=== PATIENT | male | born 1985 | race Caucasian/White ===

== ENCOUNTER 2025-03-12 07:06 | Emergency (ER) | payer MEDICAID, SELFPAY ==
[2025-03-12 07:12] VITALS: BP 113/69; PULSE 69; RESP 15; TEMP 36.5; O2SAT 98; BMI 31.1
--- NOTE | 2025-03-12 07:18 | ED_ITS ---
HPI - Nausea/Vomiting/Diarrhea 2 General: Chief complaint: GI Bleed Stated complaint: bloody emesis Time Seen by Provider: 03/12/25 07:09 Source: patient and EMS Mode of arrival: EMS Limitations: no limitations History of Present Illness: 39-year-old male who states he had a lef t lower molar pulled 5 days ago he states he woke up this morning with bleeding from his mouth states he did swallow some blood and vomited once. Does have a history alcoholism along with esophageal varices in the past as well. He denies any lightheadedness denies any pain Associated nausea: Yes Associated symtoms: Reports nausea; Denies chest pain or headache(s) Related Data Allergies Allergy/AdvReac Type Severity Reaction Status Date / Time No Known Allergies Allergy Verified 03/12/25 07:31 Review of Systems 2 Const: Denies: fever(s), chills, body aches or change in appetite Eyes: Denies: blurry vision or eye discomfort ENMT: Denies: throat pain or dental pain Card: Denies: chest pain Resp: Denies: dyspnea GI: Reports: nausea and vomiting; Denies: abdominal pain or diarrhea Musc: Denies: neck pain or back pain Skin/Breast: Denies: rash Neuro: Denies: headache(s) Physical Exam 2 Const: COMMON NORMALS: no acute distress, patient oriented x3 and healthy appearing HENMT: COMMON NORMALS: normocephalic and atraumatic HEAD & SCALP: n ormocephalic and atraumatic Eye: COMMON NORMALS: conjunctivae normal CONJUNCTIVA: Yes conjunctivae normal Neck/C-Spine: COMMON NORMALS: full ROM and supple Chest: COMMONS NORMALS: normal inspection of the chest Resp: COMMON NORMALS: normal respiratory effort, No retractions, No use of accessory muscles and clear to auscultation bilaterally AUSCULTATION: clear to auscultation bilaterally Cardio: COMMON NORMALS: regular rate, regular rhythm and No murmurs present (Cardio) RATE: regular rate RHYTHM: regular rhythm GI: COMMON NORMALS: Normal to inspection, nondistended, normoactive bowel sounds present, Soft to palpation, non-tender and no masses PALPATION: Yes Soft to palpation Extremity: COMMON NORMALS: normal to inspection and full ROM Neuro: COMMON NORMALS: patient oriented x3, moves all extremities and no focal motor deficits Psych: COMMON NORMALS: mental status grossly normal, Normal thought process present and cooperative THOUGHT PROCESS: Normal thought process present Skin: COMMON NORMALS: no rashes or lesions noted and no wounds GENERAL SKIN EXAM: no rashes or lesions noted Course 2 Vital Signs: Vital signs: Vital Signs Temperature 97.7 F 03/12/25 07:12 Pulse Rate 56 L 03/12/25 08:52 Respiratory Rate 15 03/12/25 08:01 Blood Pressure 102/58 03/12/25 08:52 Pulse Oximetry 97 03/12/25 08:52 Oxygen Delivery Me thod Room Air 03/12/25 07:12 MDM - Nausea/Vomiting/Diarrhea Medical Decision Making Patient presents here with bleeding from extracted tooth is hemoglobin is normal he has had no hematemesis here did give him TXA and put pressure on the wound and has stopped bleeding he stable for discharge. Medical Records I reviewed the patient's medical records. Lab Data I reviewed the patient's lab results. 03/12/25 07:18 03/12/25 07:18 Laboratory Results WBC 3.36 10^3/uL (3.29-11.43) 03/12/25 07:18 RBC 3.88 10^6/uL (3.85-5.65) 03/12/25 07:18 Hgb 12.00 g/dL (11.27-16.99) 03/12/25 07:18 Hct 37.3 % (37-53) 03/12/25 07:18 MCV 96.1 fl (82-101) 03/12/25 07:18 MCH 30.9 pg (27-33) 03/12/25 07:18 MCHC 32.2 g/dL (30-55) 03/12/25 07:18 RDW 18.8 % (12.1-15.1) H 03/12/25 07:18 Plt Count 113 10^3/cmm (157-399) L 03/12/25 07:18 MPV 10.7 fL (7.4-10.4) H 03/12/25 07:18 Neut % (Auto) 48.7 % 03/12/25 07:18 Lymph % (Auto) 28.3 % 03/12/25 07:18 [place] % (Auto) 16.7 % 03/12/25 07:18 Eos % (Auto) 5.7 % 03/12/25 07:18 Baso % (Auto) 0.6 % 03/12/25 07:18 Neut # (Auto) 1.64 10^3/uL (1.8-7.7) L 03/12/25 07:18 Lymph # (Auto) 1.0 10^3/uL (0.8-4.8) 03/12/25 07:18 [place] # (Auto) 0.6 10^3/uL (0.2-0.9) 03/12/25 07:18 Eos # (Auto) 0.2 10^3/uL (0.0-0.8) 03/12/25 07:18 Baso # (Auto) 0.0 10^3/uL (0.0-0.1) 03/12/25 07:18 Nucleated RBC % (auto) 0 % 03/12/25 07:18 Nucleated RBCs # 0.0 /100WBC 03/12/25 07:18 PT 13.70 SECONDS (12.1-14.9) 03/12/25 07:18 INR 0.98 (0.8-1.2) 03/12/25 07:18 Sodium 136 mmol/L (136-145) 03/12/25 07:18 Potassium 3.6 mmol/L (3.5-5.1) 03/12/25 07:18 Chloride 106 mmol/L (98-107) 03/12/25 07:18 Carbon Dioxide 20 mmol/L (22-29) L 03/12/25 07:18 Anion Gap 13.6 (5-19) 03/12/25 07:18 BUN 11 mg/dL (6-20) 03/12/25 07:18 Creatinine 0.5 mg/dL (0.7-1.2) L 03/12/25 07:18 GFR Calculation 183.2 mL/min (90-130) H 03/12/25 07:18 Glucose 116 mg/dL (65-115) H 03/12/25 07:18 Calculated Osmolality 282 mOsm/kg (285-295) L 03/12/25 07:18 Calcium 8.8 mg/dL (8.5-10.5) 03/12/25 07:18 Total Bilirubin 0.9 mg/dL (0.15-1.2) 03/12/25 07:18 AST 42 U/L (0-40) H 03/12/25 07:18 ALT 24 U/L (0-41) 03/12/25 07:18 Alkaline Phosphatase 74 U/L (40-130) 03/12/25 07:18 Total Protein 6.9 g/dL (6.6-8.7) 03/12/25 07:18 Albumin 3.3 g/dL (3.5-5.2) L 03/12/25 07:18 Globulin 3.6 g/dL (1.3-4.6) 03/12/25 07:18 Lipase 53 U/L (13-60) 03/12/25 07:18 Blood Type A Positive 03/12/25 07:18 Rho(D) Type Rh positive 03/12/25 07:18 Antibody Screen Negative 03/12/25 07:18 No radiology studies performed this visit Discharge Plan Discharge Patient Disposition: Home Clinical Impression: Surgical wound hemorrhage after dental procedure Condition: Stable Discharge Orders: Discharge ED (Routine); Ordered 03/12/25 Ordered By: Jo Truong Discharge Diet: Advance as tolerated Discharge Activity: Resume usual activity Patient Instructions: Mouth Care (ED) Print Language: Malagasy Coding Level of Care Code ED Front End Loader Driver for Staci Nettles
[2025-03-12 07:25] LABS: Hematocrit 37.3 % (37-53); Hemoglobin 12.00 g/dL (11.27-16.99); Mean Corpuscular HGB Conc 32.2 g/dL (30-55); Mean Corpuscular Hemoglobin 30.9 pg (27-33); Mean Corpuscular Volume 96.1 fl (82-101); Nucleated Red Blood Cells % 0 %; Platelet Count 113 10^3/cmm (157-399); Red Blood Count 3.88 10^6/uL (3.85-5.65); White Blood Count 3.36 10^3/uL (3.29-11.43)
[2025-03-12] MEDS: ondansetron 2 mg/ML SDV 2 mL 4 MG IVP (07:34)
[2025-03-12] MEDS: tranexamic acid 1,000 MG/100 ML PREMIX 600 MG IV (07:35)
[2025-03-12 07:37] LABS: INR 0.98 (0.8-1.2); Prothrombin Time 13.70 SECONDS (12.1-14.9)
[2025-03-12 07:43] VITALS: BP 104/61; PULSE 56; RESP 14; O2SAT 96
[2025-03-12 07:46] LABS: Alanine Aminotransferase 24 U/L (0-41); Albumin Level 3.3 g/dL (3.5-5.2); Alkaline Phosphatase 74 U/L (40-130); Anion Gap 13.6 (5-19); Aspartate Amino Transferase 42 U/L (0-40); Blood Urea Nitrogen 11 mg/dL (6-20); Calcium 8.8 mg/dL (8.5-10.5); Carbon Dioxide 20 mmol/L (22-29); Chloride 106 mmol/L (98-107); Globulin 3.6 g/dL (1.3-4.6); Glucose 116 mg/dL (65-115); Lipase 53 U/L (13-60); Osmolality Calculated 282 mOsm/kg (285-295); Potassium 3.6 mmol/L (3.5-5.1); Sodium 136 mmol/L (136-145); Total Protein 6.9 g/dL (6.6-8.7)
[2025-03-12 07:49] LABS: Creatinine Clr Calc Pharmacy 242.7986
[2025-03-12 08:01] VITALS: BP 97/54; PULSE 56; RESP 15; O2SAT 97
[2025-03-12 08:52] VITALS: BP 102/58; PULSE 56; O2SAT 97
== END 2025-03-12 08:54 | disposition home or self-care (01) ==
PROVIDERS: Emergency Provider Emergency Medicine; PCP Internal Medicine Hospice and Palliative Medicine
DX: K91.841 Postprocedural hemorrhage of a digestive system organ or structure following other procedure (principal)
CPT/HCPCS: 36415; 80053; 83690; 85025; 85610; 86850; 86900; 96374; 99284; J2405; J9999

== ENCOUNTER 2025-06-09 15:33 | Emergency (ER) | payer MEDICAID, SELFPAY ==
[2025-06-09 15:37] VITALS: BP 128/76; PULSE 71; RESP 17; TEMP 36.5; O2SAT 99; BMI 32.1
--- OUTSIDE RECORDS SUMMARY | 2025-06-09 15:39 | XMS_ITS | Clinical Summary ---
Author Organization [facility] Address [address] [place] [address] Care Team Providers Care Cup Machine Operator Name Role Phone Belgica Gallegos MD Primary Care Provider [phone] Allergies No known active allergies Medications pantoprazole (PROTONIX) 40 mg Tablet, Delayed Release (E.C.)Indication s:History of esophageal varices with bleeding Take 1 Tablet (40 mg) by mouth 2 times daily. 60 Tablet 2 12/26/2020 1:24 PM CDT 12/26/2020 Active rifAXIMin (XIFAXAN) 550 mg TabletIndication s:Alcoholic hepatitis without ascites (CMS/HCC),Alcoho lic cirrhosis of liver without ascites (CMS/HCC) Take 1 Tablet (550 mg) by mouth 2 times daily. 180 Tablet 1 12/26/2020 Active sucralfate (CARAFATE) 1 gram tabletIndication s:History of esophageal varices with bleeding Take 1 Tablet (1 Gram) by mouth 4 times daily before meals and at bedtime. 120 Tablet 3 12/26/2020 1:24 PM CDT 12/26/2020 Active spironolactone (ALDACTONE) 50 mg tabletIndication s:Alcoholic cirrhosis of liver without ascites (CMS/HCC),Alcoho lic hepatitis without ascites (CMS/HCC),Histor y of esophageal varices with bleeding Take 1 Tablet (50 mg) by mouth daily. 30 Tablet 3 01/29/2021 8:51 AM CDT 01/28/2021 Active furosemide (LASIX) 20 mg tabletIndication s:Alcoholic cirrhosis of liver without ascites (CMS/HCC),Alcoho lic hepatitis without ascites (CMS/HCC),Histor y of esophageal varices with bleeding Take 1 Tablet (20 mg) by mouth daily. 30 Tablet 3 01/29/2021 8:51 AM CDT 01/28/2021 Active Active Problems Problem Noted Date Diagnosed Date Hepatic encephalopathy 01/28/2021 Gynecomastia, male 01/28/2021 Smoking 01/28/2021 Alcoholism 01/28/2021 Family History Medical History Relation Name Comments Diabetes Maternal Grandfather Relation Name Status Comments Maternal Grandfather Other prostat e cancer Social History Tobacco Use Types Packs/Day Years Used Date Smoking Tobacco: Every Day Cigarettes Smokeless Tobacco: Never Comments:pt. states he smoke s 3 ppw 01.28.21 Alcohol Use Standard Drinks/Week Comments Not Currently 0 (1 standard drink = 0.6 oz pur e alcohol) clean for 1 year 01.28.21 Sex and Gender Information Value Date Recorded Sex Assigned at Not on file Legal Sex Male 2:28 PM CDT Gender Identity Not on file Sexual Orientation Not on file Last Filed Vital Signs Vital Sign Reading Time Taken Comments Blood Pressure 100/50 01/28/2021 2:29 PM CDT Pulse 57 01/28/2021 2:29 PM CDT Temperature 37.2 C (99 F) 01/28/2021 2:29 PM CDT Respiratory Rate 20 01/28/2021 2:29 PM CDT Oxygen Saturation 97% 01/28/2021 2:29 PM CDT Inhaled Oxygen Concentration - - Weight 103 kg (227 lb) 01/28/2021 2:29 PM CDT Height 182.9 cm (6') 01/28/2021 2:29 PM CDT Body Mass Index 30.79 01/28/2021 2:29 PM CDT Plan of Treatment Health Maintenance Due Date Last Done Comments Pre-Diabetes and Diabetes Screening 1983 DTAP/TDAP/TD VACCINES (1 - Tdap) 2002 HEPATITIS B VACCINES (1 of 3 - 19+ 3-dose series) 04/04 HPV VACCINES (1 - 3-dose SCDM series) 2010 INFLUENZA VACCINE (#1) 2025 Preventative Visit- Commercial Completed 09/08/2024 Insurance [facility] Care Teams Cup Machine Operator Relationship Specialty Start Date End Date Belgica Gallegos MD [address] [place] [id number] PCP - General Family Practice 12/12/20
[2025-06-09 16:11] LABS: Hematocrit 44.5 % (37-53); Hemoglobin 14.50 g/dL (11.27-16.99); Mean Corpuscular HGB Conc 32.6 g/dL (30-55); Mean Corpuscular Hemoglobin 32.1 pg (27-33); Mean Corpuscular Volume 98.5 fl (82-101); Nucleated Red Blood Cells % 0 %; Platelet Count 161 10^3/cmm (157-399); Red Blood Count 4.52 10^6/uL (3.85-5.65); White Blood Count 5.86 10^3/uL (3.29-11.43)
[2025-06-09] MEDS: ondansetron 2 mg/ML SDV 2 mL 4 MG IVP (16:25)
[2025-06-09] MEDS: pantoprazole 40 mg SDV IVP (16:25)
[2025-06-09 16:27] LABS: Alanine Aminotransferase 36 U/L (0-41); Albumin Level 3.9 g/dL (3.5-5.2); Alkaline Phosphatase 83 U/L (40-130); Aspartate Amino Transferase 42 U/L (0-40); Blood Urea Nitrogen 7 mg/dL (6-20); Calcium 9.4 mg/dL (8.5-10.5); Carbon Dioxide 25 mmol/L (22-29); Chloride 105 mmol/L (98-107); Creatinine Clr Calc Pharmacy 203.1694; Globulin 3.7 g/dL (1.3-4.6); Glucose 112 mg/dL (65-115); Lipase 46 U/L (13-60); Osmolality Calculated 291 mOsm/kg (285-295); Sodium 141 mmol/L (136-145); Total Protein 7.6 g/dL (6.6-8.7)
[2025-06-09 16:28] LABS: Anion Gap 15.3 (5-19); Potassium 4.3 mmol/L (3.5-5.1)
--- NOTE | 2025-06-09 16:47 | ED_ITS ---
HPI - Nausea/Vomiting/Diarrhea 2 General: Chief complaint: Nausea/Vomiting/Diarrhea Stated complaint: NV / Constipation Time Seen by Provider: 06/09/25 15:52 History of Present Illness: 40-year-old male past medical history si gnificant for alcoholic liver cirrhosis stage III last drink 1 month ago, status post upper endoscopy for banding of esophageal varices 1 to 2 months ago at [facility] where he follows up with GI, presenting the emergency department with a 4-day history of difficulty tolerating p.o. fluids and fluids, feels that something is getting stuck in the bottom of his throat, thinks it may be related to his banding although that was done over a month ago and he reports he was swallowing fine prior to that, he reports an occasional vomiting without blood, he denies diarrhea, denies fever. Related Data Allergies Allergy/AdvReac Type Severity Reaction Status Date / Time No Known Allergies Allergy Verified 03/12/25 07:31 Physical Exam 2 Narrative: EXAM NARRATIVE: Gen: A&Ox4, no acute distress, nontoxic appearing HEENT: Normocephalic, atraumatic, no scleral icterus, external ears normal, moist mucous membranes Neck: Supple, full range of motion, no observable masses Lungs: No Respiratory distress, Lungs clear to auscultation bilaterally no rales, rhonchi, wheezing CV: Regular rate and rhythm, no murmur, no pitting edema to lower extremities bilaterally Abdomen: Soft, minimally distended, nontender to palpation MSK: No joint swelling, FROM all 4 extremities Skin: No rashes, petechiae, lesions. Normal color per patient. Neuro: Alert and oriented, no slurred speech, sensation and strength grossly intact all 4 extremities Psych: Appropriate for situation. Course 2 Reevaluation(s): Reevaluation #1: Lab work generally unremarkable, no evidence of clinically significant electrolyte abnormality SHERIN or dehydration, patient did tolerate p.o. intake in the ER witnessed by RN without regurgitation, stable for discharge with outpatient GI recommendation follow-up at [facility].. Time: 17:19 Vital Signs: Vital signs: Vital Signs Temperature 97.7 F 06/09/25 15:37 Pulse Rate 71 06/09/25 15:37 Respiratory Rate 17 06/09/25 15:37 Blood Pressure 128/76 06/09/25 15:37 Pulse Oximetry 99 06/09/25 15:37 Oxygen Delivery Me thod Room Air 06/09/25 15:37 MDM - Nausea/Vomiting/Diarrhea Medical Decision Making 40-year-old male history of alcoholic liver cirrhosis presenting the emergency department with reported dysphagia and intolerance to p.o. food and fluids x 4 to 5 days, on exam he appears well-hydrated, he has stable vital signs, he has no significant tenderness to abdominal palpation, will obtain labs to assess for any significant electrolyte derangements SHERIN or evidence of severe malnutrition/dehydration, at this time patient may eventually require repeat upper endoscopy to assess for esophageal stricture but given that he has no pain and his last procedure was over a month ago I have no concern for iatrogenic esophageal perforation or mediastinitis, we will assess for any acute emergency medical condition that would necessitate transfer to a facility with GI capabilities, if no acute pathology found would likely recommend patient follow- up with his GI doctors in [facility] for further evaluation Lab Data No leukocytosis no anemia no SHERIN normal electrolytes LFTs generally benign with minimal elevation in AST and normal bilirubin 06/09/25 16:01 06/09/25 16:01 Laboratory Results WBC 5.86 10^3/uL (3.29-11.43) 06/09/25 16:01 RBC 4.52 10^6/uL (3.85-5.65) 06/09/25 16:01 Hgb 14.50 g/dL (11.27-16.99) 06/09/25 16:01 Hct 44.5 % (37-53) 06/09/25 16:01 MCV 98.5 fl (82-101) 06/09/25 16:01 MCH 32.1 pg (27-33) 06/09/25 16:01 MCHC 32.6 g/dL (30-55) 06/09/25 16:01 RDW 15.0 % (12.1-15.1) 06/09/25 16:01 Plt Count 161 10^3/cmm (157-399) 06/09/25 16:01 MPV 9.7 fL (7.4-10.4) 06/09/25 16:01 Neut % (Auto) 73.2 % 06/09/25 16:01 Lymph % (Auto) 14.2 % 06/09/25 16:01 [place] % (Auto) 9.2 % 06/09/25 16:01 Eos % (Auto) 2.9 % 06/09/25 16:01 Baso % (Auto) 0.3 % 06/09/25 16:01 Neut # (Auto) 4.29 10^3/uL (1.8-7.7) 06/09/25 16:01 Lymph # (Auto) 0.8 10^3/uL (0.8-4.8) 06/09/25 16:01 [place] # (Auto) 0.5 10^3/uL (0.2-0.9) 06/09/25 16:01 Eos # (Auto) 0.2 10^3/uL (0.0-0.8) 06/09/25 16:01 Baso # (Auto) 0.0 10^3/uL (0.0-0.1) 06/09/25 16:01 Nucleated RBC % (auto) 0 % 06/09/25 16:01 Nucleated RBCs # 0.0 /100WBC 06/09/25 16:01 Sodium 141 mmol/L (136-145) 06/09/25 16:01 Potassium 4.3 mmol/L (3.5-5.1) 06/09/25 16: Chloride 105 mmol/L (98-107) 06/09/25 16:01 Carbon Dioxide 25 mmol/L (22-29) 06/09/25 16:01 Anion Gap 15.3 (5-19) 06/09/25 16:01 BUN 7 mg/dL (6-20) 06/09/25 16: Creatinine 0.6 mg/dL (0.7-1.2) L 06/09/25 16: GFR Calculation 147.8 mL/min (90-130) H 06/09/25 16:01 Glucose 112 mg/dL (65-115) 06/09/25 16: Calculated Osmolality 291 mOsm/kg (285-295) 06/09/25 16: Calcium 9.4 mg/dL (8.5-10.5) 06/09/25 16:01 Total Bilirubin 0.7 mg/dL (0.15-1.2) 06/09/25 16:01 AST 42 U/L (0-40) H 06/09/25 16:01 ALT 36 U/L (0-41) 06/09/25 16:01 Alkaline Phosphatase 83 U/L (40-130) 06/09/25 16:01 Total Protein 7.6 g/dL (6.6-8.7) 06/09/25 16:01 Albumin 3.9 g/dL (3.5-5.2) 06/09/25 16:01 Globulin 3.7 g/dL (1.3-4.6) 06/09/25 16:01 Lipase 46 U/L (13-60) 06/09/25 16:01 No radiology studies performed this visit Discharge Plan Discharge Patient Disposition: Home Clinical Impression: Dysphagia Condition: Stable Discharge Orders: Discharge ED (Routine); Ordered 06/09/25 Ordered By: Zachary Metz Referrals: Shelley Nolan M.D. [Primary Care Provider, Unknown] Patient Instructions: Patient Portal & Darcy Instructions, Dysphagia (ED) Activity Restrictions/Additional Instructions: You were seen in the emergency department for difficulty tolerating food and fluids, your workup in the emergency department shows no evidence of emergent dehydration or electrolyte abnormalities, at this time I recommend you follow-up with your trial justice to consider repeat endoscopy to evaluate your esophagus for other pathology, return to the emergency department if your symptoms worsen prior to following up with GI Print Language: Cambodian Coding Level of Care Code ED Sneller Hand for Satci Nettles
[2025-06-09 18:30] VITALS: BP 109/72; PULSE 67; O2SAT 100
== END 2025-06-09 18:32 | disposition home or self-care (01) ==
PROVIDERS: Emergency Provider Student in an Organized Health Care Education/Training Program; PCP Internal Medicine Hospice and Palliative Medicine
DX: R13.10 Dysphagia, unspecified (principal)
CPT/HCPCS: 36415; 80053; 83690; 85025; 96374; 96375; 99284; J2405; J2470; J7030